=== PATIENT | male | born 1990 | race African-American/Black ===

== ENCOUNTER 2018-01-08 19:57 | Emergency (ER) | payer SELFPAY ==
[~2018-01-08] VITALS: Ht 185.4 cm; Wt 99.8 kg
[2018-01-08 20:15] VITALS: Ht 185.4 cm; Wt 99.8 kg
[2018-01-08 20:36] VITALS: BP 133/74
== END 2018-01-08 20:36 | disposition home or self-care (01) ==
LOC: ED 19:57
DX: H66.92 Otitis media, unspecified, left ear (principal); H91.90 Unspecified hearing loss, unspecified ear

== ENCOUNTER 2019-05-09 20:07 | Emergency (ER) | payer SELFPAY ==
[~2019-05-09] VITALS: Ht 185.4 cm; Wt 109.0 kg
[2019-05-09 20:10] VITALS: Ht 185.4 cm; Wt 109.0 kg
[2019-05-09 21:40] VITALS: BP 128/83
== END 2019-05-09 21:40 | disposition home or self-care (01) ==
LOC: ED 20:07
DX: J45.909 Unspecified asthma, uncomplicated (principal)